=== PATIENT | male | born 1985 | race Caucasian/White ===

== ENCOUNTER 2021-11-01 08:56 | Outpatient (CLI) | payer OTHER | END 2021-11-01 08:57 | disposition home or self-care (01) | LOC: LAB 08:56 | PROVIDERS: ATTEND Student in an Organized Health Care Education/Training Program | DX: Z01.812 Encounter for preprocedural laboratory examination (principal); K60.3 Anal fistula; Z20.822 Contact with and (suspected) exposure to COVID-19 ==

== ENCOUNTER 2021-11-02 06:20 | Day surgery (SDC) | payer OTHER ==
[~2021-11-02 06:20] MED LIST: CEFAZOLIN SODIUM IN 0.9 % NACL 2 GM/100 ML BAG IV ONE; metroNIDAZOLE 500 MG/100 ML 500 MG/100 ML BAG ONE
[2021-11-02] MEDS ORDERED: LACTATED RINGERS 1,000 ML IV ONE ×2 (06:24→08:57)
[2021-11-02] MEDS ORDERED: METOCLOPRAMIDE 10 MG/2 ML VIAL IVP PRN (07:23)
[2021-11-02] MEDS ORDERED: HYDROmorphone 0.5 MG/0.5 ML SYRINGE IVP PRN (07:23)
[2021-11-02] MEDS ORDERED: ePHEDrine 50 MG/ML VIAL IVP PRN (07:23)
[2021-11-02] MEDS ORDERED: NALOXONE 0.4 MG/ML VIAL IVP PRN (07:23)
[2021-11-02] MEDS ORDERED: ATROPINE ABBOJECT 1 MG/10 ML SYRINGE IVP PRN (07:23)
[2021-11-02] MEDS ORDERED: MORPHINE 2 MG/ML CARPUJECT IVP PRN (07:23)
[2021-11-02] MEDS ORDERED: fentaNYL 100 MCG/2 ML VIAL IVP PRN (07:23)
[2021-11-02] MEDS ORDERED: ONDANSETRON 4 MG/2 ML VIAL IVP PRN (07:23)
--- NOTE | 2021-11-02 07:23 | ANESTHESIA ---
Pre-Anesthesia VS, & Labs - Diagnosis anal fistula - Procedure fistulotomy, EUA Vital Signs: Temp Pulse Resp BP Pulse Ox 37.1 C 83 16 147/100 H 100 11/02/21 06:39 11/02/21 06:39 11/02/21 06:39 11/02/21 06:39 11/02/21 06:39 Height: 6 ft Weight (kg): 86 kg Body Mass Index: 25.7 BMI Classification: Overweight - NPO >8 hours Home Medications and Allergies Home Medications: Ambulatory Orders Ibuprofen 400 mg PO TID 10/18/21 Ibuprofen 400 mg PO TID 10/18/21 Allergies/Adverse Reactions: Allergies Allergy/AdvReac Type Severity Reaction Status Date / Time No Known Drug Allergies Allergy Verified 10/18/21 14:45 Anes History & Medical History - Anesthetic History Anesthesia Complications: reports: No previous complications Family history of Anesthesia Complications: Denies Family history of Malignant Hyperthermia: Denies - Medical History Cardiovascular: reports: None Pulmonary: reports: Other Gastrointestinal: reports: None Urinary: reports: None Musculoskeletal: reports: Chronic back pain Skin: reports: None Smoking Status: Current every day smoker Psychosocial: reports: Alcohol, Cannabis - Surgical History General: reports: Appendectomy Exam General: Alert, Oriented x3 Dental: WNL Mouth Openin Fingerbreadth Neck Mobility: Normal Mallampati classification: II Thyromental Distance: 4-6 cm Respiratory: Lungs clear Cardiovascular: Regular rate Plan Anesthesia Type: General Consent for Procedure(s) Verified and Reviewed: Yes Code Status: Attempt Resuscitation ASA classification: 2-Mild systemic disease Is this case an emergency?: No
[2021-11-02] MEDS ORDERED: LIDOCAINE MPF 2%-EPI 1:200000 20 ML VIAL ONE (07:30)
[2021-11-02] MEDS ORDERED: BUPIVACAINE 0.5% PF 10 ML VIAL ONE (07:30)
[2021-11-02] MEDS ORDERED: LIDOCAINE OINTMENT 5% 35.44 GM TUBE ONE (07:30)
[2021-11-02] MEDS ORDERED: DEXAMETHASONE 4 MG/ML VIAL ONE (07:32)
[2021-11-02] MEDS ORDERED: SUGAMMADEX 200 MG/2 ML VIAL IVP ONE (07:32)
[2021-11-02] MEDS ORDERED: ROCURONIUM 50 MG/5 ML VIAL ONE (07:32)
[2021-11-02] MEDS ORDERED: LIDOCAINE-MPF 2% 5 ML VIAL ONE (07:33)
[2021-11-02] MEDS ORDERED: PROPOFOL 200 MG/20 ML VIAL IVP ONE ×2 (07:33→08:29)
[2021-11-02] MEDS ORDERED: MIDAZOLAM 2 MG/2 ML VIAL ONE ×2 (07:34→08:07)
[2021-11-02] MEDS ORDERED: KETAMINE 500 MG/10 ML VIAL ONE (07:34)
[2021-11-02] MEDS ORDERED: SODIUM CHLORIDE 0.9% 10 ML VIAL IVP ONE (07:38)
[2021-11-02] MEDS ORDERED: METHYLENE BLUE 0.5% 50 MG/10 ML AMPULE ONE (07:39)
[2021-11-02] MEDS ORDERED: LACTATED RINGERS 1,000 ML IV SCH (08:00)
[2021-11-02] MEDS ORDERED: fentaNYL 100 MCG/2 ML VIAL ONE (08:08)
[2021-11-02] MEDS ORDERED: LABETALOL 5 MG/1 ML 20 ML MDV ONE (08:12)
[2021-11-02] MEDS ORDERED: HYDROGEN PEROXIDE 3% 473 ML BOTTLE TOP ONE (08:16)
[2021-11-02] MEDS ORDERED: METHYLENE BLUE 0.5% 50 MG/10 ML AMPULE IR ONE (08:16)
[2021-11-02] MEDS ORDERED: BUPIVACAINE 0.5% PF 10 ML VIAL IM ONE (08:17)
[2021-11-02] MEDS ORDERED: LIDOCAINE 2%-EPI 1:100000 20 ML MDV SUBQ ONE (08:17)
[2021-11-02] MEDS ORDERED: DEXMEDETOMIDINE 200 MCG/2 ML VIAL ONE (08:31)
[2021-11-02] MEDS ORDERED: HYDROcod/ACETAM 5/325 MG TABLET PO PRN (08:45)
--- NOTE | 2021-11-02 08:52 | OPERATIVE REPORT ---
Operative Report - General Procedure Date: 11/02/21 Planned Procedure: exam under anesthesia and fistulotomy Pre-Op Diagnosis: superficial perianal fistula Procedure Performed: EUA and fistulotomy/ superficial Post Op Diagnosis: same - Procedure Note Primary Surgeon: regan laura md Anesthesia Technique: General ET tube, Local Pathology: not sent Estimated Blood Loss (mL): 0 Drain/Tube Type: Other (none) Findings: well defined superficial fistula tract 10:00 Complications: none - Other Other Information/Narrative: The patient was properly identified brought to the operating room and placed in supine position. General endotracheal anesthesia was induced. Sequential compression devices were placed. [facility]. He was prepped and draped in a sterile fashion and given preoperative antibiotics. Examination under anesthesia was performed. Approximately 9 and 10:00 there were 2 fistula openings approximately 2-1/2 cm from the verge. At approximately 9:00 there was an additional 2 small openings at the anal verge. An Angiocath and methylene blue with hydrogen peroxide was injected through these small fistula tracts. An additional fistula tract was present internally approximately 2 cm from the anal verge. The well-defined fistula tract was excised down to musculature. The additional internal fistula tract was opened. This went down to the internal sphincter however did not go through musculature. Hemostasis was assured. Gauze was placed externally. He was awakened and brought to recovery in good condition.
[2021-11-02] MEDS ORDERED: KETOROLAC 30 MG/ML VIAL ONE (09:32)
[2021-11-02 09:52] VITALS: BP 140/92
--- NOTE | 2021-11-02 10:04 | ANESTHESIA POST OP EVALUATION ---
Anesthesia Post Eval - Post Anesthesia Eval Vitals: Last Vital Signs Temp 36.5 C 11/02/21 09:50 Pulse 79 11/02/21 09:50 Resp 16 11/02/21 09:50 BP 140/92 H 11/02/21 09:50 Pulse Ox 100 11/02/21 09:50 CV Function Including HR & BP: Stable Pain Control: Satisfactory Nausea & Vomiting: Negative Mental Status: Baseline Respiratory Status: Airway Patent Hydration Status: Satisfactory Anesthesia Complications: None
[2021-11-02] MEDS ORDERED: HYDROcod/ACETAM 5/325 MG TABLET ONE (10:10)
== END 2021-11-02 06:21 | disposition home or self-care (01) ==
LOC: SDS 06:20
PROVIDERS: ATTEND Surgery
DX: K60.3 Anal fistula (principal); F17.210 Nicotine dependence, cigarettes, uncomplicated
CPT/HCPCS: 46270; A9270; J0690; J7120

== ENCOUNTER 2022-03-14 12:56 | Outpatient (CLI) | payer OTHER ==
--- NOTE | 2022-03-14 15:18 | MRI Report ---
PROCEDURE: Lumbar Spine W/O INDICATIONS: LOW BACK PAIN TECHNIQUE: Noncontrast sagittal T1 spin echo and T2 fast echo, sagittal STIR, axial T1 and T2 fast spin echo thr ough the lumbar spine. In cases with scoliosis, additional coronal T2 fast spin echo may be performe d. COMPARISON: None. FINDINGS: Image quality: Excellent. Alignment and Curvature: There is normal bony alignment. Bone Marrow: Modic type II reactive endplate changes noted adjacent to the L1-L2 disc. No acute verte bral body compression fractures. Spinal Cord: Conus medullaris terminates at the T12-L1 disc level. Visualized cord demonstrates nor mal signal and size. Paraspinous Soft Tissues: No paravertebral masses. T12-L1: Normal in appearance. L1-L2: Loss of disc signal. Mild, diffuse disc bulge. Mild narrowing of the central canal. Mild bi lateral neural foraminal narrowing. No neural compression. L2-L3: Normal in appearance. L3-L4: Loss of disc signal. Mild, diffuse disc bulge. Mild narrowing of the central canal. Mild karla ateral neural foraminal narrowing. No neural compression. Fissure noted in the right foraminal annulu s. L4-L5: Loss of disc signal. Mild, diffuse disc bulge. Mild left facet hypertrophy. Mild narrowing o f the central canal. Mild right and [id number] left neural foraminal narrowing. No neural compr ession. Fissure is noted in the annulus. L5-S1: Slight loss of disc signal. Mild, diffuse disc bulge. Mild right and moderate left facet hyp ertrophy. No central stenosis. No neural foraminal narrowing. No neural compression IMPRESSION: 1. Multilevel degenerative disc disease. 2. Multilevel facet arthropathy. 3. No severe central canal narrowing. 4. No severe neural foraminal narrowing. 5. No neural compression. 6. L3-L4 and L4-L5 disc annulus fissures. Reviewed by: Lynne Cuellar MD, PhD on 03/14/2022 3:17 PM PDT Approved by: Lynne Cuellar MD, PhD on 03/14/2022 3:17 PM PDT Station ID: [id number]
== END 2022-03-14 12:57 | disposition home or self-care (01) ==
LOC: DI 12:56
PROVIDERS: ATTEND Student in an Organized Health Care Education/Training Program
DX: M47.816 Spondylosis without myelopathy or radiculopathy, lumbar region (principal); M47.817 Spondylosis without myelopathy or radiculopathy, lumbosacral region; M51.36 Other intervertebral disc degeneration, lumbar region; M48.061 Spinal stenosis, lumbar region without neurogenic claudication; M51.37 Other intervertebral disc degeneration, lumbosacral region; M48.07 Spinal stenosis, lumbosacral region